=== PATIENT | female | born 1960 | race Caucasian/White ===

== ENCOUNTER 2021-09-25 12:02 | Emergency (ER) | payer MEDICAID ==
[~2021-09-25] VITALS: Ht 167.6 cm; Wt 52.2 kg
--- NOTE | 2021-09-25 12:23 | NUR ---
URINE SPECIMEN COLLECTED AND SENT TO LAB.
[2021-09-25] MEDS ORDERED: ACETAMINOPHEN ES 500 MG TABLET ONE (13:10)
--- NOTE | 2021-09-25 13:14 | NUR ---
Tolerated PO (clear liquids well) Ambulatory gait even and steady Patient discharged to home in stable condition. Written and verbal after care instructions given. Patient verbalizes understanding of instruction.
[2021-09-25 13:15] VITALS: BP 120/79
[2021-09-25] MEDS ORDERED: ACETAMINOPHEN ES 500 MG TABLET PO ONE (13:30)
== END 2021-09-25 13:16 | disposition home or self-care (01) ==
LOC: ER 12:13
DX: R07.81 Pleurodynia (principal); Z59.00 Homelessness unspecified

== ENCOUNTER 2022-01-19 16:38 | Inpatient (IN) | payer MEDICAID ==
[~2022-01-19] VITALS: Ht 172.7 cm; Wt 49.4 kg
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
[2022-01-19] MEDS ORDERED: MORPHINE SULFATE INJ 2 MG/ML DISP.SYRIN ONE ×2 (18:00→20:22)
[2022-01-19] MEDS ORDERED: MORPHINE SULFATE INJ 2 MG/ML DISP.SYRIN IV ONE ×2 (18:00→20:30)
--- NOTE | 2022-01-19 19:20 | NUR ---
PT TAKEN TO CT VIA KARAN
--- NOTE | 2022-01-19 19:20 | NUR ---
PT TAKEN TO CT
--- NOTE | 2022-01-19 19:34 | NUR ---
PT RETURNED TO ER BED [address]
--- NOTE | 2022-01-19 19:47 | NUR ---
COVID ANTIGEN SWAB COLLECTED AND SENT TO LAB
--- NOTE | 2022-01-19 19:50 | NUR ---
METAL STORAGE WORKER AT PT'S BEDSIDE
[2022-01-19 20:01] LABS: BASOPHILS % (AUTO) 0.3 % (0.0-2.0); HEMATOCRIT 39 % (33-45); HEMOGLOBIN 12.5 g/dL (11.5-14.8); LYMPHOCYTES # (AUTO) 1.4 K/uL (0.8-4.8); LYMPHOCYTES % (AUTO) 10.2 % (20.0-44.0); MEAN CORPUSCULAR HGB CONC 33 g/dl (31.0-36.0); MEAN CORPUSCULAR VOLUME 93 fL (82-100); MONOCYTES % (AUTO) 7.5 % (2.0-12.0); NEUTROPHILS # (AUTO) 11.4 K/uL (1.8-8.9); PLATELET COUNT (AUTO) 259 K/uL (150-450); RED BLOOD CELL COUNT(AUTO) 4.15 MIL/uL (4.0-5.2); WHITE BLOOD COUNT (AUTO) 13.9 K/uL (4.3-11.0)
[2022-01-19 20:22] LABS: CALCIUM, SERUM 8.6 mg/dL (8.5-10.1); CREATININE 0.6 mg/dL (0.6-1.3); POTASSIUM 3.8 mmol/L (3.5-5.1)
--- NOTE | 2022-01-19 21:15 | NUR ---
RFA #18G S/L;PATENT & INTACT
[2022-01-20] MEDS ORDERED: MORPHINE SULFATE INJ 4 MG/ML DISP.SYRIN ONE (00:28)
[2022-01-20] MEDS ORDERED: MORPHINE SULFATE INJ 2 MG/ML DISP.SYRIN IV ONE (00:30)
--- NOTE | 2022-01-20 02:00 | NUR ---
DR SARMIENTO PAGED PER DR HUFF.
--- NOTE | 2022-01-20 02:37 | NUR ---
FC 16FR INSERTED WITH URINE RETURN
--- NOTE | 2022-01-20 02:50 | NUR ---
PAGED [facility], DOCTOR BLOW TORCH OPERATOR WILL CALL BACK.
--- NOTE | 2022-01-20 03:32 | NUR ---
REPORT GIVEN TO ALBERTA Delgado RN FOR ALFREDO
--- NOTE | 2022-01-20 03:36 | NUR ---
URINE COLLECTED AND SENT TO LAB
[2022-01-20 03:45] VITALS: BP 137/79
--- NOTE | 2022-01-20 03:53 | NUR ---
PT TRANSFERRED TO 3 VIA HOSPITAL PROTOCOL. ALL BELONGINGS WITH PT.
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
[2022-01-20 04:23] LABS: BILIRUBIN,URINE NEGATIVE (NEGATIVE); COLOR,URINE YELLOW (YELLOW); LEUKOCYTE ESTERASE ,URINE MODERATE (NEGATIVE); NITRITE, URINE POSITIVE (NEGATIVE); PH,URINE 7.5 (5.0-8.0); PROTEIN,URINE NEGATIVE (NEGATIVE); UGLUCOSE NEGATIVE (NEGATIVE); UROBILINOGEN,URINE 0.2 EU/dL (0.2)
[2022-01-20] MEDS ORDERED: ACETAMINOPHEN 325 MG TABLET PO PRN (04:30)
[2022-01-20] MEDS ORDERED: ZOLPIDEM TARTRATE 5 MG TABLET PO PRN (04:30)
[2022-01-20] MEDS ORDERED: IV D5/ 0.9% NACL 1,000 ML IV PRN (04:30)
[2022-01-20] MEDS ORDERED: HYDROCODONE/APAP 5/325MG TABLET PO PRN ×2 (04:30→18:00)
[2022-01-20] MEDS ORDERED: ONDANSETRON HCL/PF 4 MG/2 ML VIAL IV PRN ×2 (04:30→18:30)
--- NOTE | 2022-01-20 05:00 | NUR ---
RN NOTE NOTED PT LAYING ON HER R-SIDE. PT REPOSITIONED HERSELF. L-SIDE SKIN ASSESSMENT DONE, NOTED L-HIP BRUISE. PIC IN CHART
[2022-01-20 05:07] VITALS: BP 137/79
[2022-01-20] MEDS: HYDROMORPHONE 1 MG/1 ML DISP.SYRIN IV PRN ×3 (05:12→11:51)
[2022-01-20 05:40] LABS: BACTERIA,URINE Many /HPF (None Seen)
[2022-01-20 05:41] LABS: SQUAMOUS EPITHELIAL CELL,UR Few /HPF (None Seen)
[2022-01-20 06:39] LABS: BASOPHILS % (AUTO) 0.2 % (0.0-2.0); EOSINOPHILS % (AUTO) 0.1 % (0.0-6.0); HEMATOCRIT 41 % (33-45); HEMOGLOBIN 13.2 g/dL (11.5-14.8); LYMPHOCYTES # (AUTO) 1.7 K/uL (0.8-4.8); MEAN CORPUSCULAR HGB CONC 33 g/dl (31.0-36.0); MEAN CORPUSCULAR VOLUME 92 fL (82-100); MONOCYTES # (AUTO) 1.1 K/uL (0.1-1.30); MONOCYTES % (AUTO) 8.3 % (2.0-12.0); NEUTROPHILS % (AUTO) 78.4 % (43.0-81.0); PLATELET COUNT (AUTO) 296 K/uL (150-450); WHITE BLOOD COUNT (AUTO) 12.8 K/uL (4.3-11.0)
--- NOTE | 2022-01-20 07:10 | NUR ---
RN NOTE PT STABLE THROUGHOUT THE NIGHT. PAIN WELL MANAGED WITH PRN DILAUDID. PT HAS BEEN NPO. NO ACUTE DISTRESS NOTED. SAFETY MEASURES MAINTAINED. ENDORSED TO NEXT SHIFT NURSE.
--- NOTE | 2022-01-20 07:56 | NUR ---
APARTMENT MAINTENANCE WORKER OPENING NOTES: PATIENT RESTING IN BED, AWAKE, A/O X3, ABLE TO MAKE NEEDS KNOWN. PATIENT IS ON ROOM AIR; BREATHING EVEN AND UNLABORED; NO SOB NOTED. COMPLAINS OF HIP PAIN. RAC IV ACCESS PRESENT AND INTACT INFUSING NS @75 MLS/HR. QUIJANO CATH IN PLACE DRAINING URINE TO GRAVITY. SAFETY PRECAUTIONS IN PLACE; BED IN LOW POSITION AND LOCKED, RAILS UPX2, CALL LIGHT WITHIN REACH. WILL CONTINUE TO MONITOR PATIENT.
[2022-01-20 08:00] VITALS: BP 128/90
[2022-01-20 08:22] LABS: CREATININE 0.6 mg/dL (0.6-1.3); POTASSIUM 3.9 mmol/L (3.5-5.1)
--- NOTE | 2022-01-20 08:40 | NUR ---
MS RN NOTES PATIENT COMPLAINING OF L HIP PAIN 05/25. REQUESTING PAIN MEDICATION. PRN DILAUDID ADMINISTERED. WILL REASSESS.
[2022-01-20] MEDS: CEFTRIAXONE 1 G in IV D5W 50 ML IV SCH (11:48)
--- NOTE | 2022-01-20 11:50 | NUR ---
MS RN NOTES PATIENT COMPLAINING OF L HIP PAIN 05/25. REQUESTING PAIN MEDICATION. PRN DILAUDID ADMINISTERED. WILL REASSESS.
[2022-01-20] MEDS ORDERED: VANCOMYCIN 500 MG in IV D5W 100ml IV SCH (13:00)
[2022-01-20] MEDS ORDERED: POLYMYXIN B SULFATE 500,000 UNITS ONE (13:06)
[2022-01-20] MEDS ORDERED: ANESTHESIA TRAY IN PYXIS 1 EA TRAY MC ONE (13:07)
[2022-01-20] MEDS ORDERED: BUPIVACAINE 0.5 % PF 150 MG/30 ML VIAL ONE (13:07)
--- NOTE | 2022-01-20 15:42 | NUR ---
RN NOTES PATIENT TAKEN TO OR @ 1540 FOR SURGERY.
[2022-01-20] MEDS ORDERED: MIDAZOLAM HCL 2 MG/2ML VIAL ONE (15:47)
[2022-01-20] MEDS ORDERED: HYDROMORPHONE INJ 2 MG/ML DISP.SYRIN ONE (15:47)
[2022-01-20 16:00] VITALS: BP 145/72
[2022-01-20] MEDS ORDERED: SEVOFLURANE 250 ML BOTTLE IH ONE (16:11)
[2022-01-20] MEDS ORDERED: DOCUSATE SODIUM 250 MG CAPSULE PO PRN (18:00)
[2022-01-20] MEDS ORDERED: BISACODYL SUPP (10 MG) 10 MG/SUPP.RECT SUPP.RECT RC PRN (18:30)
[2022-01-20] MEDS ORDERED: SENNOSIDES 8.6 MG TABLET PO PRN (18:30)
--- NOTE | 2022-01-20 18:30 | NUR ---
MS RN NOTES PATIENT BACK FROM SURGERY, ASLEEP. VS WNL. WILL CONTINUE TO MONITOR PATIENT.
--- NOTE | 2022-01-20 18:53 | NUR ---
DIRECTOR PHARMACEUTICAL CLOSING NOTES: PATIENT RESTING IN BED AFTER SURGERY, ASLEEP. PATIENT IS ON ROOM AIR; BREATHING EVEN AND UNLABORED; NO SOB NOTED. L HAND IV ACCESS PRESENT AND INTACT INFUSING NS @75 MLS/HR. QUIJANO CATH IN PLACE DRAINING URINE TO GRAVITY. ALL NEEDS ATTENDED DURING THE DAY. SAFETY PRECAUTIONS IN PLACE; BED IN LOW POSITION AND LOCKED, RAILS UPX2, CALL LIGHT WITHIN REACH. WILL ENDORSE TO GRANT OFFICER NURSE FOR ALFREDO.
--- NOTE | 2022-01-20 19:46 | NUR ---
RN OPENING NOTES: PATIENT RECEIVED PT IN BED SLEEPING BUT EASY TO AROUSED.A/O X3,ON ROOM AIR BREATHING EVEN AND UNLABORED; NO SIGN SOB/DISTRESS NOTED. RAC IV ACCESS PRESENT AND INTACT INFUSING NS @75 MLS/HR. QUIJANO CATH IN PLACE DRAINING CLEARED URINE TO GRAVITY. SAFETY PRECAUTIONS IN PLACE; BED IN LOW POSITION AND LOCKED, RAILS UPX2, CALL LIGHT WITHIN REACH. WILL CONTINUE TO MONITOR.
[2022-01-20 22:00] VITALS: BP 152/75
[2022-01-20] MEDS: ANCEF 1 GM/50 ML D5W IV SCH ×2 (23:06)
[2022-01-20] MEDS: HYDROCODONE/APAP 5/325MG TABLET PO PRN (23:07)
--- NOTE | 2022-01-20 23:07 | NUR ---
RN NOTES PT COMPLAINED OF LEFT HIP PAIN 03/25.PRN NORCO 5/325 MG 2TABS WAS GIVEN. NO A/R NOTED.
[2022-01-21] MEDS: HYDROCODONE/APAP 5/325MG TABLET PO PRN ×4 (04:49→15:44)
--- NOTE | 2022-01-21 04:54 | NUR ---
RN NOTES PT COMPLAINED OF LEFT HIP PAIN 03/25.PRN NORCO 5/325 MG 2TABS WAS GIVEN. NO A/R NOTED.
[2022-01-21 06:38] LABS: BASOPHILS % (AUTO) 0.1 % (0.0-2.0); HEMATOCRIT 35 % (33-45); HEMOGLOBIN 11.7 g/dL (11.5-14.8); LYMPHOCYTES # (AUTO) 1.8 K/uL (0.8-4.8); LYMPHOCYTES % (AUTO) 11.6 % (20.0-44.0); MEAN CORPUSCULAR HGB CONC 33 g/dl (31.0-36.0); MEAN CORPUSCULAR VOLUME 92 fL (82-100); MONOCYTES # (AUTO) 1.7 K/uL (0.1-1.30); MONOCYTES % (AUTO) 10.8 % (2.0-12.0); NEUTROPHILS # (AUTO) 11.9 K/uL (1.8-8.9); NEUTROPHILS % (AUTO) 77.5 % (43.0-81.0); PLATELET COUNT (AUTO) 218 K/uL (150-450); RED BLOOD CELL COUNT(AUTO) 3.82 MIL/uL (4.0-5.2); WHITE BLOOD COUNT (AUTO) 15.4 K/uL (4.3-11.0)
[2022-01-21 06:52] LABS: CALCIUM, SERUM 8.4 mg/dL (8.5-10.1); CREATININE 0.7 mg/dL (0.6-1.3); POTASSIUM 3.7 mmol/L (3.5-5.1)
--- NOTE | 2022-01-21 07:00 | NUR ---
MUSIC COORDINATOR CLOSING NOTES: PATIENT IN BED SLEEPING ON ROOM AIR SAT 98% BREATHING EVEN AND UNLABORED; NO SOB/DISTRESS NOTED. L HAND IV ACCESS PRESENT AND INTACT INFUSING NS @75 MLS/HR. QUIJANO CATH IN PLACE DRAINING CLEARED,ELIZABETH.URINE.ALL NEEDS ATTENDED. SAFETY PRECAUTIONS IN PLACE; BED IN LOW POSITION AND LOCKED, RAILS UPX2, CALL LIGHT WITHIN REACH. WILL ENDORSE TO NEXT SHIFT.
[2022-01-21 08:00] VITALS: BP 138/71
--- NOTE | 2022-01-21 08:17 | NUR ---
MS AURELIO OPENING NOTE Patient in bed, awake. A/O x 3, able to make needs known. On room air, breathing evenly and unlabored. No SOB or s/s of distress noted. IV access on LFA #18 infusing NS at 75 ml/hr. Flaherty catheter in place draining to a yellow colored urine. Safety precautions in place: bed in low, locked position; siderails up x 2; call light within reach,. Will continue to monitor. Addendum: 01/21/22 at 0820 by LUIS A RUCKER RN CORRECTION: Fluid running is D5 NS at 75 ml/hr.
--- NOTE | 2022-01-21 08:28 | NUR ---
RN NOTE Patient complained of pain on Left hip, 8/10 pain scale. PRN Sheridan 2 tabs given. Will continue to monitor.
[2022-01-21] MEDS: ANCEF 1 GM/50 ML D5W IV SCH ×2 (08:29)
[2022-01-21] MEDS: CEFTRIAXONE 1 G in IV D5W 50 ML IV SCH (10:56)
[2022-01-21] MEDS ORDERED: LEVO250T59 PO (11:39)
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
[2022-01-21] MEDS ORDERED: ENOXAPARIN SODIUM 40 MG/0.4 ML DISP.SYRIN SQ SCH (16:00)
--- NOTE | 2022-01-21 18:16 | NUR ---
RN NOTE Report given to AURELIO Dodge of [facility].
--- NOTE | 2022-01-21 19:03 | NUR ---
MS RN CLOSING NOTE Patient in bed, asleep. A/O x 3, able to make needs known. Stable on room air, breathing evenly and unlabored. No SOB or s/s of distress noted. IV access on LFA #18 infusing D5 NS at 75 ml/hr. Flaherty catheter in place draining to a yellow colored urine with an output of 1000 cc. Due meds given. All needs attended to. Safety precautions in place: bed in low, locked position; siderails up x 2; call light within reach,. Will endorse to assistant casino shift manager nurse for ALFREDO.
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
--- NOTE | 2022-01-21 20:15 | NUR ---
MS RN NOTES PICKED UP BY [facility] FOR TRANSPORT TO [facility].QUIJANO CATH REMOVED,SALINE LOCK REMOVED AND ALSO ID BAND REMOVED.LEFT HOSPITAL IN STABLE CONDITION.VITAL SIGNS STABLE.
== END 2022-01-21 20:15 | DRG 308 ==
LOC: ER 16:40 → MED 01-20 03:18
PROVIDERS: ADMIT Internal Medicine; ATTEND Internal Medicine
PROC: 0QS706Z Reposition Left Upper Femur with Intramedullary Internal Fixation Device, Open Approach (ICD-10-PCS; principal; 2022-01-20)
DX: S72.142A Displaced intertrochanteric fracture of left femur, initial encounter for closed fracture (principal); F12.90 Cannabis use, unspecified, uncomplicated; F14.10 Cocaine abuse, uncomplicated; N39.0 Urinary tract infection, site not specified; Z59.00 Homelessness unspecified; V18.4XXA Pedal cycle driver injured in noncollision transport accident in traffic accident, initial encounter; Y93.55 Activity, bike riding; Y92.89 Other specified places as the place of occurrence of the external cause; F17.210 Nicotine dependence, cigarettes, uncomplicated
CPT/HCPCS: 36415; 71045-TC; 72192-TC; 73020; 73502; 76856-TC; 80048-TC; 81001; 82962-TC; 85025-TC; 85730-TC; 86850-TC; 87081-TC; 87086-TC; 87186-TC; 97112-TC; 97530-TC; A6209; A6253; C1713; C9803; G0378; J0690; J0696; J1100; J1170; J1650; J1885; J2250; J2270; J2405; J2704; J3370; J3490; J7030; J7042; J7060